=== PATIENT | female | born 1955 | race Caucasian/White ===

== ENCOUNTER → 2016-09-24 | Outpatient (CLI) | payer BC ==
[~2016-09-24] MED LIST: AMOX-355 PO; FLUO40CA PO; HYDR-3454 PO; MELO-195 PO; METO25TA2 PO; MNTL10T PO; PREDNISONE 20MG
--- OUTSIDE RECORDS SUMMARY | 2016-09-24 10:51 | XMS REPORT | Continuity of Care Document ---
Author Author [facility] Organization [facility] Address Unknown Phone Unavailable Allergies Active Description Code Type Severity Reaction Onset Reported/Identified Relationship to Patient Clinical Status Yes codeine [id number] Drug Allergy Unknown N/V, DECREASED 03/02/2014 Yes Sulfa (Sulfonamide Antibiotics) [id number] Drug Allergy Unknown HIVES 03/02/2014 Medications Problems Date Dx Coded Attending Type Code Diagnosis Diagnosed By 03/09/2014 DILIP REINA, ANNE P Ot 473.0 03/09/2014 DILIP REINA, ANNE P Ot 473.2 03/09/2014 DILIP REINA, ANNE P Ot 478.0 03/28/2015 OSWALDO REINA, ZENAIDA L Ot 610.1 03/28/2015 OSWALDO REINA, ZENAIDA L Ot V16.3 03/28/2015 OSWALDO REINA, ZENAIDA L Ot V76.11 09/12/2015 LETY ESPARZA [facility] Ot 611.71 09/12/2015 LETY ESPARZA [facility] Ot V16.3 09/12/2015 CANDELARIO OGDEN [facility] Ot 490 09/12/2015 DILIP REINA, ANNE P Ot 473.9 09/12/2015 DILIP REINA, ANNE P Ot 473.9 09/12/2015 DILIP REINA, ANNE P Ot 478.0 09/12/2015 DILIP REINA, ANNE P Ot V72.63 09/12/2015 OSWALDO REINA, ZENAIDA L Ot 610.1 09/12/2015 OSWALDO REINA, ZENAIDA L Ot V16.3 09/12/2015 OSWALDO REINA, ZENAIDA L Ot V76.11 09/18/2015 OSWALDO REINA, ZENAIDA L Ot R92.8 09/20/2015 OSWALDO REINA, ZENAIDA L Ot R92.8 09/26/2015 OSWALDO REINA, ZENAIDA L Ot R92.8 10/17/2015 OSWALDO REINA, ZENAIDA L Ot R92.8 04/27/2016 OWSALDO REINAZENAIDA Ot R92.8 OTH ABN AND INCONCLUSIVE FINDINGS ON DX Procedures Results Encounters ACCT No. Visit Date/Time Discharge Status Pt. Type Provider Facility Loc./Unit Complaint [id number] 03/14/2015 08:43:00 2014 23:59:59 CLS Outpatient ZENAIDA CHACON MD [facility] RAD [id number] 03/09/2014 07:31:00 2013 12:30:00 [id number] 03/02/2014 09:56:00 2013 23:59:59 CLS Outpatient ANNE CHERRY MD [facility] PREOP [id number] 02/14/2014 11:31:00 2013 23:59:59 CLS Outpatient ANNE CHERRY MD [facility] RAD [id number] 05/11/2013 17:26:00 2012 23:59:59 CLS Outpatient CANDELARIO OGDEN [facility] RAD [id number] 03/24/2013 07:56:00 2012 23:59:59 CLS Outpatient LETY ESPARZA [facility] RAD [id number] 04/10/2016 08:47:00 ACT Outpatient ZENAIDA CHACON MD [facility] RAD ABNORMAL MAMMO [id number] 10/11/2015 09:19:00 ACT Outpatient ZENAIDA CHACON MD [facility] LAB [id number] 10/08/2015 10:39:00 ACT Outpatient ZENAIDA CHACON MD [facility] RAD [id number] 09/12/2015 09:20:00 ACT Outpatient ZENAIDA CHACON MD [facility] RAD [id number] 09/12/2015 09:20:00 Document Registration
--- NOTE | 2016-09-25 12:12 | Diagnostic Imaging Report ---
Bilateral screening mammogram. The current study was also evaluated with a Computer Aided Detection (CAD) system. INDICATION: Screening. No current complaints stated on the questionnaire. COMPARISON: 03/14/2015. FINDINGS: The breasts are composed of heterogeneously dense parenchyma which may decrease mammographic sensitivity. There are occasional benign-appearing calcifications seen. Biopsy clips are noted in the right breast. Allowing for technique and positional differences, no suspicious change is seen. IMPRESSION: Dense breasts with no definite change. ACR BI-RADS Category 2: Benign findings. Result letter will be mailed to the patient. Note: At least 10% of breast cancer is not imaged by mammography. Dictated by: Dictated on workstation # [id number]
== END ==
LOC: RAD 10:48
PROVIDERS: ATTEND Nurse Practitioner Family
DX: Z12.31 Encounter for screening mammogram for malignant neoplasm of breast (principal)
CPT/HCPCS: 77067

== ENCOUNTER → 2016-11-26 | Outpatient (CLI) | payer BC ==
[2016-11-26 18:50] LABS: BASOPHILS % (AUTO) 1 % (0-10); EOSINOPHILS # (AUTO) 0.1 10^3/uL (0.0-0.3); EOSINOPHILS % (AUTO) 2 % (0-10); LYMPHOCYTES # (AUTO) 2.1 X 10^3 (1.0-4.0); LYMPHOCYTES % (AUTO) 35 % (12-44); MEAN CORPUSCULAR HEMOGLOBIN 32 PG (25-34); MEAN CORPUSCULAR HGB CONC 33 G/DL (32-36); MEAN CORPUSCULAR VOLUME 95 FL (80-99); MEAN PLATELET VOLUME 10.7 FL (7.4-10.4); MONOCYTES # (AUTO) 0.6 X 10^3 (0.0-1.0); MONOCYTES % (AUTO) 10 % (0-12); NEUTROPHILS # (AUTO) 3.3 X 10^3 (1.8-7.8); NEUTROPHILS % (AUTO) 54 % (42-75); PLATELET COUNT 253 10^3/uL (130-400); RED BLOOD COUNT 4.42 10^6/uL (4.35-5.85); RED CELL DISTRIBUTION WIDTH 13.1 % (10.0-14.5); WHITE BLOOD COUNT 6.1 10^3/uL (4.3-11.0)
[2016-11-26 20:50] LABS: ERYTHROCYTE SEDIMENTATION RATE 12 MM/HR (0-30)
[2016-12-01 11:20] LABS: EHRLICHIA CHAFFEENSIS G ABY 1:16 (<1:16)
[2016-12-01 11:23] LABS: IGG ROCKY MOUNTAIN SPOTTED FEV <1:16 (<1:16); TULAREMIA ANTIBODY 1:20
[2016-12-01 11:24] LABS: IGM ROCKY MOUNTAIN SPOTTED FEV <1:10 (<1:10)
[2016-12-01 11:43] LABS: LYME AB G M 0.06; LYME AB INTERP Negative (NEGATIVE)
== END ==
LOC: LAB 18:33
PROVIDERS: ATTEND Nurse Practitioner Family
DX: R53.83 Other fatigue (principal)
CPT/HCPCS: 36415; 85025; 85652; 86141; 86618; 86666; 86668; 86757

== ENCOUNTER → 2017-10-13 | Outpatient (CLI) | payer BC ==
--- NOTE | 2017-10-13 12:43 | Diagnostic Imaging Report ---
PROCEDURE: US left lower extremity venous. TECHNIQUE: Multiple real-time grayscale images were obtained over the left lower extremity in various projections. Additional duplex Doppler and color Doppler images were also obtained. INDICATION: Left leg pain and swelling. FINDINGS: There is no evidence of left lower extremity DVT. The left lower extremity deep venous system demonstrates normal compressibility with normal response to augmentation and Valsalva. IMPRESSION: No evidence of left lower extremity DVT. Dictated by: Dictated on workstation # [id number]
== END ==
LOC: RAD 11:59
PROVIDERS: ATTEND Nurse Practitioner Family
DX: M79.89 Other specified soft tissue disorders (principal)

== ENCOUNTER 2018-01-27 20:31 | Outpatient (CLI) | payer BC | END 2018-01-28 05:45 | disposition home or self-care (01) | LOC: SLEEP 20:31 | PROVIDERS: ATTEND Nurse Practitioner Family | DX: G47.33 Obstructive sleep apnea (adult) (pediatric) (principal) | CPT/HCPCS: 95811 ==

== ENCOUNTER → 2018-03-18 | Outpatient (CLI) | payer OTHER, BC ==
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
== END ==
LOC: RAD 09:40
PROVIDERS: ATTEND Nurse Practitioner Family
DX: M50.322 Other cervical disc degeneration at C5-C6 level (principal); M43.12 Spondylolisthesis, cervical region
CPT/HCPCS: 72040

== ENCOUNTER → 2018-11-22 | Outpatient (CLI) | payer BC ==
--- NOTE | 2018-11-22 11:51 | Diagnostic Imaging Report ---
Clinical indication: Patient fell and twisted foot and ankle this morning. Patient has pain and swelling involving the ankle joint and fifth metatarsal tuberosity area. Exams: 1: X-ray of the right foot, 3 views. 2: X-ray of the right ankle, 3 views. Comparison: None. Findings: There is a distracted fracture of the base of the fifth metatarsal bone with adjacent soft tissue swelling. The fracture fragment is displaced posteriorly by roughly 6 mm. There is no other fracture or dislocation seen on this exam. The ankle mortise and syndesmotic joint is unremarkable. The remainder of the forefoot and phalanges are unremarkable. Impression: 1: There is a comminuted distracted fracture involving the base of the fifth metatarsal bone with adjacent soft tissue swelling. 2: The remainder of this exam shows no other significant abnormality. Report was faxed to office of SIDDHARTH Gibson by nathan at 11:50 am. Dictated by: Dictated on workstation # [id number]
== END ==
LOC: RAD 10:24
PROVIDERS: ATTEND Nurse Practitioner Family
DX: S92.351A Displaced fracture of fifth metatarsal bone, right foot, initial encounter for closed fracture (principal); W19.XXXA Unspecified fall, initial encounter
CPT/HCPCS: 73610; 73630

== ENCOUNTER → 2021-06-03 | Outpatient (CLI) | payer BC ==
--- NOTE | 2021-06-03 12:33 | Diagnostic Imaging Report ---
Indication: Routine screening. Comparison is made with prior mammogram 09/24/2016 and 04/10/2016. 2-D and 3-D bilateral screening mammography was performed with CAD. Both breasts are heterogeneously dense, limiting the sensitivity of mammography. There are benign calcifications in both breasts. Biopsy changes in the right breast are again noted. No mass or malignant-appearing microcalcifications are identified. Axillae are unremarkable. IMPRESSION: BI-RADS Category 2 No mammographic features suspicious for malignancy are identified. ACR BI-RADS Category 2: Benign findings. Result letter will be mailed to the patient. Note: At least 10% of breast cancer is not imaged by mammography. Dictated by: Dictated on workstation # [id number]
== END ==
LOC: RAD 09:00
PROVIDERS: ATTEND Nurse Practitioner Family
DX: Z12.31 Encounter for screening mammogram for malignant neoplasm of breast (principal)
CPT/HCPCS: 77063; 77067

== ENCOUNTER → 2021-09-04 | Outpatient (CLI) | payer BC ==
--- NOTE | 2021-09-04 12:41 | Diagnostic Imaging Report ---
INDICATION: Abdominal pain. COMPARISON: None FINDINGS: 2 frontal radiographic views of the abdomen were obtained. Small bowel loops are nondistended. There is no large collection of free cranial air. No unexpected extraosseous callus occasions or radiopaque foreign bodies are seen. Osseous structures show no gross acute abnormalities. IMPRESSION: 1. Nonobstructed small bowel gas pattern. Dictated by: Dictated on workstation # [id number]
--- NOTE | 2021-09-04 13:19 | Diagnostic Imaging Report ---
Ultrasound noninvasive INDICATION: Hyperlipidemia This exam is performed in the routine fashion. Segmental pressures of both lower extremities were obtained. The ankle brachial index on the right is 1.3 and on the left 1.15 (normal 1.0 or greater). IMPRESSION: The ankle brachial indices are within normal limits. Dictated by: Dictated on workstation # [id number]
== END ==
LOC: RAD 10:30
PROVIDERS: ATTEND Nurse Practitioner Family
DX: R10.9 Unspecified abdominal pain (principal); M79.606 Pain in leg, unspecified; R68.0 Hypothermia, not associated with low environmental temperature; E78.5 Hyperlipidemia, unspecified; R14.0 Abdominal distension (gaseous)
CPT/HCPCS: 74018; 93922

== ENCOUNTER → 2021-11-06 | Outpatient (CLI) | payer BC ==
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
== END ==
LOC: RAD 08:45
PROVIDERS: ATTEND Nurse Practitioner Family
DX: R51.9 Headache, unspecified (principal); M79.10 Myalgia, unspecified site; Z87.820 Personal history of traumatic brain injury
CPT/HCPCS: 70551

== ENCOUNTER → 2021-11-20 | Outpatient (CLI) | payer BC | LOC: CARD 09:30 | PROVIDERS: ATTEND Nurse Practitioner Family | DX: I51.7 Cardiomegaly (principal); I35.1 Nonrheumatic aortic (valve) insufficiency; I72.9 Aneurysm of unspecified site; R00.9 Unspecified abnormalities of heart beat | CPT/HCPCS: 93306 ==

== ENCOUNTER → 2022-02-10 | Outpatient (CLI) | payer BC ==
--- NOTE | 2022-02-10 15:38 | Diagnostic Imaging Report ---
Indication: Left medial knee pain. Time of Exam: 2:35 PM 3 views of the left knee were obtained. Alignment is normal. This very mild medial compartmental joint space narrowing. The articular surfaces are smooth. No fracture or dislocation is seen. There is suprapatellar fullness consistent with a moderate-sized knee joint effusion. IMPRESSION: Joint effusion and mild medial compartmental degenerative change. Dictated by: Dictated on workstation # [id number]
== END ==
LOC: RAD 14:12
PROVIDERS: ATTEND Nurse Practitioner Family
DX: M17.12 Unilateral primary osteoarthritis, left knee (principal)
CPT/HCPCS: 73562

== ENCOUNTER → 2022-02-13 | Outpatient (CLI) | payer BC ==
--- NOTE | 2022-02-13 17:31 | Diagnostic Imaging Report ---
EXAMINATION: Magnetic resonance imaging of the left knee without intravenous contrast DATE: February 13, 2022. COMPARISON: Left knee radiographs February 10, 2022. INDICATION: 66-year-old female, left knee pain for one month. TECHNIQUE: Multiplanar, multisequence non contrast enhanced MR imaging was accomplished. FINDINGS: MENISCI: The medial meniscus is intact. The lateral meniscus is intact. LIGAMENTS AND TENDONS: The anterior and posterior cruciate ligaments are intact. The medial collateral ligament is intact. The iliotibial band, mid third lateral capsular ligament, fibular collateral ligament, biceps femoris tendon and conjoined tendon are intact. The quadriceps tendon and patella ligament are intact. JOINT: There is mild cartilage thinning of the posterior aspect of the medial femoral condyle with minimal underlying degenerative related edema. The additional articular cartilage appears intact. There is no sizable knee joint effusion. There is no identified intra-articular body or prominent synovitis. BONE: There is no acute fracture, bone contusion or evidence of osteonecrosis. 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 There is nonspecific subcutaneous edema which is most prominent anteriorly. IMPRESSION: 1. Intact menisci and cruciate ligaments. Additional ligaments and tendons are intact. 2. Mild medial compartment osteoarthritis. No knee joint effusion. 3. No acute fracture, bone contusion or evidence of osteonecrosis. 4. Cornejo's cyst. Dictated by: Dictated on workstation # [id number]
== END ==
LOC: RAD 14:45
PROVIDERS: ATTEND Nurse Practitioner Family
DX: M17.12 Unilateral primary osteoarthritis, left knee (principal); M71.22 Synovial cyst of popliteal space [Baker], left knee
CPT/HCPCS: 73721

== ENCOUNTER → 2022-03-30 | Outpatient (CLI) | payer BC ==
--- NOTE | 2022-03-30 16:14 | Diagnostic Imaging Report ---
PROCEDURE: US left lower extremity venous. TECHNIQUE: Multiple real-time grayscale images were obtained over the left lower extremity in various projections. Additional duplex Doppler and color Doppler images were also obtained. INDICATION: Calf swelling. FINDINGS: The veins of the left leg have good color filling and compressibility. There is phasic flow and normal response to augmentation. IMPRESSION: Negative venous Doppler of the left leg. Dictated by: Dictated on workstation # [id number]
== END ==
LOC: RAD 15:30
PROVIDERS: ATTEND Family Medicine
DX: M79.89 Other specified soft tissue disorders (principal)

== ENCOUNTER 2022-12-15 09:30 | Emergency (ER) | payer BC ==
[~2022-12-15] VITALS: Ht 165 cm; Wt 82.0 kg
--- NOTE | 2022-12-15 10:05 | ED Cardiac General ---
History of Present Illness General Chief Complaint: Chest Pain Stated Complaint: CHEST PAINS Nursing Triage Note: PT AMB TO RM 7 PT CO OF CHEST PAIN STARTED THIS AM 8/10 STARTED APPROX 1 HOUR AGO, PT CO OF SOA, AND NAUSEA. Source: patient Exam Limitations: no limitations History of Present Illness Date Seen by Provider: December 15, 2022 Time Seen by Provider: 09:40 Initial Comments Patient is a 67-year-old who presents to the emergency room with a chief complaint of left scapular pain that started this morning around 8 AM. She states that it hurts to take a deep breath in her back. The pain does not radiate. She feels a little short of breath. No nausea, sweating no anterior c hest wall pain. She has never had a pain like this before. She cannot recall any activities that might have caused this. No recent heavy lifting, pushing or pulling. She denies recent illness, productive cough, congestion. No problems with bowel or bladder. She states that her grandmother from a heart attack because her heart "exploded" and her only symptom was back pain. Patient does take medication for high blood pressure. She is not a diabetic, not a smoker. Timing/Duration: 1-3 hours Severity: moderate Location: other (back, left scapula) Activities at Onset: activity NTG SL DIET TECHNICIAN REGISTERED: No ASA po DIET TECHNICIAN REGISTERED: No Associated Systoms: Shortness of Air (Hurts to take a deep breath) Allergies and Home Medications Allergies Coded Allergies: Sulfa (Sulfonamide Antibiotics) (Unverified Allergy, Unknown, HIVES, ) codeine (Unverified Allergy, Unknown, N/V, DECREASED RENAL FUNCTION, 03/02/14) Patient Home Medication List Home Medication List Reviewed: Yes Amoxicillin/Clavulanate K (Augmentin 500-125 Tablet) 1 Each Tablet, 1 EACH PO BID Prescribed by: SALONI CRUM on 03/09/14 1143 Fluoxetine Hcl (Fluoxetine Hcl) 40 Mg Capsule, 40 MG PO DAILY, (Reported) Entered as Reported by: JACKELIN HENDERSON on 03/02/14 1130 Hydrocodone Bit/Acetaminophen (Vicodin 5-300 Mg Tablet) 1 Each Tablet, 1-2 TAB PO Q4H PRN for PAIN Prescribed by: SALONI CRUM on 03/09/14 1143 Metoprolol Tartrate (Metoprolol Tartrate 25 Mg) 25 Mg Tablet, 25 MG PO DAILY, (Reported) Entered as Reported by: JACKELIN HENDERSON on 03/02/14 1130 Montelukast Sodium (Singulair 10 Mg) 10 Mg Tablet, 10 MG PO DAILY, (Reported) Entered as Reported by: JACKELIN HENDERSON on 03/02/14 1130 [Prednisone 20MG] Prescribed by: SALONI CRUM on 03/09/14 1143 Review of Systems Review of Systems Constitutional: see HPI EENTM: No Symptoms Reported Respiratory: Shortness of Air Cardiovascular: No Symptoms Reported Gastrointestinal: No Symptoms Reported Genitourinary: No Symptoms Reported Musculoskeletal: back pain (Left scapular) Skin: no symptoms reported Psychiatric/Neurological: No Symptoms Reported All Other Systems Reviewed Negative Unless Noted: Yes Past Agucygf-Tegotk-Unxmre Hx Patient Social History Tobacco Use?: No Substance use?: No Alcohol Use?: No Pt feels they are or have been: No Immunizations Up To Date Influenza Vaccine Up-to-Date: No; Not Current First/Initial COVID19 Vaccinat: YES Second COVID19 Vaccination Shalom: YES Past Medical History Surgery/Hospitalization HX: FIBROMYALGIA, HTN, ELEVATED CHOLESTEROL. FOOT SURG, HYST Physical Exam Vital Signs Vital Signs - First Documented 12/15/22 09:30 Pulse 58 Resp 16 B/P (MAP) 152/86 (108) Pulse Ox 95 Capillary Refill : Less Than 3 Seconds Height, Weight, BMI Height: 5'5.00" Weight: 162lbs. oz. 73.045476rg; 30.00 BMI Method: General Appearance: No Apparent Distress, WD/WN HEENT: PERRL/EOMI Neck: Normal Inspection Respiratory: Lungs Clear, Normal Breath Sounds, No Accessory Muscle Use, No Respiratory Distress Cardiovascular: Regular Rate, Rhythm, Normal Peripheral Pulses Gastrointestinal: Non Tender, Soft Extremity: Normal Capillary Refill, Normal Inspection, Normal Range of Motion, Non Tender, Other (Patient has point tenderness just medial to the left scapula slightly inferior. I am unable to completely reproduce the pain but she states that is the area in which she is uncomfortable. No overlying rashes. Good range of motion of the left shoulder.) Neurologic/Psychiatric: Alert, Oriented x3, No Motor/Sensory Deficits, Normal Mood/Affect Skin: Normal Color, Warm/Dry Progress/Results/Core Measures Results/Orders Lab Results Laboratory Tests Test 12/15/22 09:36 Range/Units White Blood Count 5.9 4.3-11.0 10^3/uL Red Blood Count 4.24 3.80-5.11 10^6/uL Hemoglobin 13.3 11.5-16.0 g/dL Hematocrit 40 35-52 % Mean Corpuscular Volume 93 80-99 fL Mean Corpuscular Hemoglobin 31 25-34 pg Mean Corpuscular Hemoglobin Concent 34 32-36 g/dL Red Cell Distribution Width 13.5 10.0-14.5 % Platelet Count 266 130-400 10^3/uL Mean Platelet Volume 10.5 9.0-12.2 fL Immature Granulocyte % (Auto) 0 % Neutrophils (%) (Auto) 59 42-75 % Lymphocytes (%) (Auto) 29 12-44 % Monocytes (%) (Auto) 9 0-12 % Eosinophils (%) (Auto) 3 0-10 % Basophils (%) (Auto) 1 0-10 % Neutrophils # (Auto) 3.5 1.8-7.8 10^3/uL Lymphocytes # (Auto) 1.7 1.0-4.0 10^3/uL Monocytes # (Auto) 0.5 0.0-1.0 10^3/uL Eosinophils # (Auto) 0.2 0.0-0.3 10^3/uL Basophils # (Auto) 0.0 0.0-0.1 10^3/uL Immature Granulocyte # (Auto) 0.0 0.0-0.1 10^3/uL Prothrombin Time 13.1 12.2-14.7 SEC INR Comment 0.9 0.8-1.4 Activated Partial Thromboplast Time 30 24-35 SEC Sodium Level 142 135-145 MMOL/L Potassium Level 3.8 3.6-5.0 MMOL/L Chloride Level 106 98-107 MMOL/L Carbon Dioxide Level 25 21-32 MMOL/L Anion Gap 11 5-14 MMOL/L Blood Urea Nitrogen 15 7-18 MG/DL Creatinine 1.02 0.60-1.30 MG/DL Estimat Glomerular Filtration Rate 61 BUN/Creatinine Ratio 15 Glucose Level 90 70-105 MG/DL Calcium Level 9.3 8.5-10.1 MG/DL Corrected Calcium 9.4 8.5-10.1 MG/DL Magnesium Level 2.2 1.6-2.4 MG/DL Total Bilirubin 0.5 0.1-1.0 MG/DL Aspartate Amino Transf (AST/SGOT) 19 5-34 U/L Alanine Aminotransferase (ALT/SGPT) 27 0-55 U/L Alkaline Phosphatase 83 40-136 U/L Troponin I < 0.028 <0.028 NG/ML Total Protein 6.5 6.4-8.2 GM/DL Albumin 3.9 3.2-4.5 GM/DL My Orders Orders - RIGOBERTO SÁNCHEZ MD Ekg Tracing (12/15/22 09:34) Cbc With Automated Diff (12/15/22 10:01) Magnesium (12/15/22 10:01) Chest 1 View, Ap/Pa Only (12/15/22 10:01) Comprehensive Metabolic Panel (12/15/22 10:01) Protime With Inr (12/15/22 10:01) Partial Thromboplastin Time (12/15/22 10:01) O2 (12/15/22 10:01) Monitor-Rhythm Ecg Trace Only (12/15/22 10:01) Ed Iv/Invasive Line Start (12/15/22 10:01) Troponin I Yo (12/15/22 10:01) Orphenadrine Inj (Ed Only) (Norflex Inje (12/15/22 10:15) Medications Given in ED Current Medications Medications Dose Ordered Sig/Chloe Route Start Time Stop Time Status Last Admin Dose Admin Orphenadrine Citrate 60 mg ONCE ONCE IV 12/15/22 10:15 12/15/22 10:16 DC 12/15/22 10:25 60 MG Vital Signs/I&O 12/15/22 09:30 Pulse 58 Resp 16 B/P (MAP) 152/86 (108) Pulse Ox 95 Blood Pressure Mean: 108 Progress Progress Note : Time: 11:25 Progress Note Patient seen and examined by me. Evaluation today includes physical exam, EKG, single view chest x-ray, CBC, Chem-12, coags, troponin. Pertinent physical exam findings, well-developed well-nourished female in no acute distress. Vital sig ns are stable. Lungs are clear, heart is regular distal pulses are intact. Skin is pink warm and dry. Patient has tenderness to palpation of the medial left scapula towards the inferior margin. No overlying rashes. Good range of motion of the left shoulder. No anterior chest wall pain that is reproducible. Differential diagnosis based on history and physical exam, atypical presentation of ACS, musculoskeletal pain, pleurisy. Labs and imaging independently reviewed by me. All of her labs are completely within normal limits to include CBC, Chem-12, coags and undetectable troponin. EKG is sinus bradycardia in the 50s without ectopy or ST segment change. Chest x-ray is also unremarkable. Patient was treated with 60 mg of Norflex IV. She states the discomfort is not completely gone but it is much improved. Low clinical concern for ACS. This does not appear to be pleuritic pain as the focus is mostly in her left shoulder blade. No associated cough or fever. Likely muscle spasm. Patient is advised to treat symptomatically with ibuprofen, lidocaine patches or Biofreeze. She is comfortable with the plan of care. Discharge instructions and return precautions provided in both verbal and written form. All questions are sought and answered. Initial ECG Impression Date: December 15, 2022 Initial ECG Impression Time: 09:41 Initial ECG Rate: 54 Initial ECG Rhythm: Normal Sinus, S.Xavi Initial ECG Intervals: Normal Initial ECG Impression: Normal Diagnostic Imaging Diagonstic Imaging: Xray Plain Films/CT/US/NM/MRI: chest Comments [facility] [place] [facility] [place], [place] NAME: HARLEY AVALOS MED REC#: [id number] PT STATUS: REG ER : 1955 PHYSICIAN: RIGOBERTO SÁNCHEZ MD ADMIT DATE: 12/15/22/ER Draft Date of Exam:12/15/22 CHEST 1 VIEW, AP/PA ONLY INDICATION: Chest pain. TECHNIQUE/COMPARISON: A frontal chest was obtained at 9:57 AM and compared to 05/11/2013. FINDINGS: The heart and mediastinal silhouette are normal in appearance. The lungs are clear. There is no pneumothorax or pleural fluid. IMPRESSION: Negative chest. Dictated on workstation # [id number] Dict: 12/15/22 1036 Trans: 12/15/22 1040 [id number] Interpreted by: JULIET STEPHENS MD Electronically signed by: Departure Impression Primary Impression: Pain of left scapula Disposition: 01 HOME, SELF-CARE Condition: Improved Departure-Patient Inst. Decision time for Depature: 11:27 Referrals: JOSE SARGENT MD (PCP/Family) Primary Care Physician Patient Instructions: Acute Pain, Adult Add. Discharge Instructions: Continue your daily medications as prescribed. You can use bybl-qov-ohmwuvk Biofreeze or lidocaine patches which you can find at your local pharmacy over the area to help improve discomfort. Please follow packaging instructions. You can take extra strength Tylenol or ibuprofen for pain as well. Please follow packaging instructions. If you develop worsening pain or have any new concerning or emergent complaints please return to the emergency room for reevaluation. Please follow-up with Dr. Sargent as well. Copy Copies To 1: JOSE SARGENT MD, KATHRYN M MD December 15, 2022 10:05
[2022-12-15] MEDS ORDERED: ORPHENADRINE 60 MG/2 ML (NORFLEX) AMP (ED ONLY) IV ONE (10:15)
[2022-12-15 10:17] LABS: BASOPHILS % (AUTO) 1 % (0-10); EOSINOPHILS # (AUTO) 0.2 10^3/uL (0.0-0.3); EOSINOPHILS % (AUTO) 3 % (0-10); HEMATOCRIT 40 % (35-52); HEMOGLOBIN 13.3 g/dL (11.5-16.0); LYMPHOCYTES # (AUTO) 1.7 10^3/uL (1.0-4.0); LYMPHOCYTES % (AUTO) 29 % (12-44); MEAN CORPUSCULAR HEMOGLOBIN 31 pg (25-34); MEAN CORPUSCULAR HGB CONC 34 g/dL (32-36); MEAN CORPUSCULAR VOLUME 93 fL (80-99); MEAN PLATELET VOLUME 10.5 fL (9.0-12.2); MONOCYTES # (AUTO) 0.5 10^3/uL (0.0-1.0); MONOCYTES % (AUTO) 9 % (0-12); NEUTROPHILS # (AUTO) 3.5 10^3/uL (1.8-7.8); NEUTROPHILS % (AUTO) 59 % (42-75); PLATELET COUNT 266 10^3/uL (130-400); WHITE BLOOD COUNT 5.9 10^3/uL (4.3-11.0)
[2022-12-15 10:18] LABS: ALBUMIN 3.9 GM/DL (3.2-4.5)
[2022-12-15 10:19] LABS: POTASSIUM 3.8 MMOL/L (3.6-5.0)
[2022-12-15 10:20] LABS: CALCIUM 9.3 MG/DL (8.5-10.1)
[2022-12-15 10:21] LABS: TOTAL PROTEIN 6.5 GM/DL (6.4-8.2)
[2022-12-15 10:23] LABS: BILIRUBIN,TOTAL 0.5 MG/DL (0.1-1.0)
[2022-12-15 10:25] LABS: CREATININE SERUM 1.02 MG/DL (0.60-1.30)
[2022-12-15 10:28] LABS: MAGNESIUM 2.2 MG/DL (1.6-2.4)
[2022-12-15 10:29] LABS: INR 0.9 (0.8-1.4); PROTHROMBIN TIME PATIENT 13.1 SEC (12.2-14.7)
--- NOTE | 2022-12-15 10:40 | Diagnostic Imaging Report ---
INDICATION: Chest pain. TECHNIQUE/COMPARISON: A frontal chest was obtained at 9:57 AM and compared to 05/11/2013. FINDINGS: The heart and mediastinal silhouette are normal in appearance. The lungs are clear. There is no pneumothorax or pleural fluid. IMPRESSION: Negative chest. Dictated by: Dictated on workstation # [id number]
[2022-12-15 11:40] VITALS: BP 174/96
== END 2022-12-15 11:42 | disposition home or self-care (01) ==
LOC: EDUNIT# 09:30 → ER 09:31
DX: M25.512 Pain in left shoulder (principal); R00.1 Bradycardia, unspecified; R07.9 Chest pain, unspecified
CPT/HCPCS: 36415; 71045; 80053; 83735; 84484; 85025; 85610; 85730; 93005; 93041

== ENCOUNTER → 2023-04-05 | Outpatient (CLI) | payer BC ==
--- NOTE | 2023-04-05 17:24 | Diagnostic Imaging Report ---
EXAMINATION: Sacroiliac joint radiographs, 3 views. COMPARISON: None. HISTORY: 67-year-old female, low back pain. FINDINGS: There is transitional lumbosacral anatomy. L5 is labeled as having a pseudoarticulation with S1. The sacroiliac joints are unremarkable in appearance. There is no identified acute fracture. IMPRESSION: 1. Unremarkable evaluation of the sacroiliac joints. 2. Transitional lumbosacral anatomy. L5 is labeled as having a pseudoarticulation with S1 on the left. Dictated on workstation # [id number]
--- NOTE | 2023-04-05 20:10 | Diagnostic Imaging Report ---
INDICATION: LUMBAR RADICULOPATHY TECHNIQUE: AP, Lateral and Spot imaging of the lumbar spine CORRELATION STUDY: None FINDINGS: The lumbar spinal curvature and alignment are within normal limits. Vertebral body heights are maintained. Novx-ec-rlckleku asymmetric disc space narrowing at L4-L5 and L5-S1 level. Hypertrophic facet arthropathy at L5-S1. No fracture or malalignment. Vascular calcification of the abdominal aorta. Mild to moderately advanced degenerative changes of both hips. Probable ingested tablet left upper quadrant. Coarse calcification over the right renal silhouette. IMPRESSION: No radiographic evidence for acute bony abnormality of the lumbar spine. Asymmetric degenerative disc disease and hypertrophic facet arthropathy lower lumbar spine. Dictated by: Dictated on workstation # [id number]
== END ==
LOC: RAD 13:31
PROVIDERS: ATTEND Nurse Practitioner Family
DX: M51.16 Intervertebral disc disorders with radiculopathy, lumbar region (principal); M47.26 Other spondylosis with radiculopathy, lumbar region
CPT/HCPCS: 72100; 72202

== ENCOUNTER → 2023-04-29 | Outpatient (CLI) | payer BC ==
--- NOTE | 2023-04-29 21:10 | Diagnostic Imaging Report ---
CLINICAL INDICATION: Patient with no known injury. Patient with chronic low back pain. EXAM: MRI of the lumbar spine performed without IV contrast. Sequences include sagittal T2, sagittal T1, sagittal T2 fat-sat, and axial T2. COMPARISON: X-ray of the lumbar spine dated 04/05/2023. FINDINGS: There is no acute lumbar spine fracture or dislocation. There is minimal Modic type II degenerative signal changes involving the anterior aspect of the L3-L5 vertebra. There are small degenerative spurs involving the lower lumbar spine anteriorly. The visualized portions of the distal thoracic spinal cord, conus medullaris, and cauda equina nerve roots are unremarkable. The conus medullaris tip is seen at the lower L1 vertebral body level. There is no significant paraspinal soft tissue abnormality. L1-L2: Unremarkable. L2-L3: There is mild bilateral facet arthropathy. There is no significant central spinal canal or neural foramen narrowing. L3-L4: There is mild bilateral facet arthropathy. There is no significant disk bulge. There is no significant central spinal canal or neural foramen narrowing. L4-L5: There is mild diffuse disk bulge. There is mild loss of disk space height. There is moderate bilateral facet arthropathy/hypertrophy. There is nsbdikez-at-lbxsdr central canal stenosis. There is ligamentum flavum buckling. There is mild right neural foramen narrowing and qnvx-mh-wakuhrtt left neural foramen narrowing. L5-S1: There is a small intervertebral disk. There is mild bilateral facet arthropathy with hypertrophic changes on the right. There is no significant central spinal canal or neural foramen narrowing. IMPRESSION: 1: There is an L4-L5 diffuse disk bulge and bilateral facet arthropathy and ligamentum flavum buckling. There is pyavetsx-fx-oavlyt central canal stenosis, mild right neural foramen narrowing and zlsr-wh-oatedekz left neural foramen narrowing. 2: The remainder of the lumbar spine shows mild degenerative changes. Dictated by: Dictated on workstation # [id number]
== END ==
LOC: RAD 09:55
PROVIDERS: ATTEND Nurse Practitioner Family
DX: M47.26 Other spondylosis with radiculopathy, lumbar region (principal); M48.061 Spinal stenosis, lumbar region without neurogenic claudication
CPT/HCPCS: 72148

== ENCOUNTER 2023-07-12 10:15 | Emergency (ER) | payer BC ==
[~2023-07-12] VITALS: Ht 165.1 cm; Wt 87.0 kg
--- NOTE | 2023-07-12 11:24 | ED Fall/Injury ---
General Chief Complaint: Trauma-Non Activation Stated Complaint: FALL | MID/LOWER BACK INJ Nursing Triage Note: pt reports she was walking up a step and lost balance, falling backward et landing on cement. denies head injury. c/o severe middle back pain. swelling et tenderness palpated over middle back. Source: patient Exam Limitations: no limitations History of Present Illness Date Seen by Provider: Jul 12, 2023 Time Seen by Provider: 11:13 Initial Comments This 68-year-old woman presents to the emergency room via private vehicle after losing her balance walking up a step and falling over backwards. She struck her back on the concrete. She denies any head or neck injury. She complains of severe pain in the left groin and lower back. She denies any prodrome such as chest pain, lightheadedness, dizziness, shortness of breath, etc. She did feel more sleepy at breakfast than usual. She took her Lyrica this morning but has not taken any other pain medication. She is tearful and avoids eye contact. Allergies and Home Medications Allergies Coded Allergies: Sulfa (Sulfonamide Antibiotics) (Unverified Allergy, Unknown, HIVES, 03/02/14) codeine (Unverified Allergy, Unknown, N/V, DECREASED RENAL FUNCTION, 03/02/14) Patient Home Medication List Home Medication List Reviewed: Yes Amoxicillin/Clavulanate K (Augmentin 500-125 Tablet) 1 Each Tablet, 1 EACH PO BID Prescribed by: SALONI CRUM on 03/09/14 1143 Fluoxetine Hcl (Fluoxetine Hcl) 40 Mg Capsule, 40 MG PO DAILY, (Reported) Entered as Reported by: JACKELIN HENDERSON on 03/02/14 1130 Hydrocodone Bit/Acetaminophen (Vicodin 5-300 Mg Tablet) 1 Each Tablet, 1-2 TAB PO Q4H PRN for PAIN Prescribed by: SALONI CRUM on 03/09/14 1143 Hydrocodone/Acetaminophen (Hydrocodone-Acetamin 5-325 mg) 5 Mg-325 Mg Tablet, 1 TAB PO Q4H PRN for PAIN-MODERATE TO SEVERE Prescribed by: LEONCIO MCCARTHY on 07/12/23 1454 Metoprolol Tartrate (Metoprolol Tartrate 25 Mg) 25 Mg Tablet, 25 MG PO DAILY, (Reported) Entered as Reported by: JACKELIN HENDERSON on 03/02/14 1130 Montelukast Sodium (Singulair 10 Mg) 10 Mg Tablet, 10 MG PO DAILY, (Reported) Entered as Reported by: JACKELIN HENDERSON on 03/02/14 1130 [Prednisone 20MG] Prescribed by: SALONI CRUM on 03/09/14 1143 Review of Systems Review of Systems Constitutional: see HPI Eyes: No Symptoms Reported Ears, Nose, Mouth, Throat: no symptoms reported Respiratory: no symptoms reported Cardiovascular: no symptoms reported Gastrointestinal: no symptoms reported Genitourinary: no symptoms reported Musculoskeletal: see HPI Skin: no symptoms reported Psychiatric/Neurological: No Symptoms Reported Past Mlxjxtp-Ccbtkd-Zgzpcw Hx Patient Social History Tobacco Use?: No Use of E-Cig and/or Vaping dev: No Substance use?: No Alcohol Use?: No Immunizations Up To Date First/Initial COVID19 Vaccinat: YES Second COVID19 Vaccination Shalom: YES Past Medical History Surgery/Hospitalization HX: FIBROMYALGIA, HTN, ELEVATED CHOLESTEROL. FOOT SURG, HYST Surgeries: No Respiratory: No Cardiac: Yes High Cholesterol, Hypertension Neurological: No : No Genitourinary: No Gastrointestinal: No Musculoskeletal: Yes (Lumbar disc bulge) Fibromyalgia, Chronic Back Pain HEENT: No Cancer: No Psychosocial: No Integumentary: No Physical Exam Vital Signs Vital Signs - First Documented 07/12/23 10:45 Temp 36.6 Pulse 64 Resp 16 B/P (MAP) 110/69 (83) Pulse Ox 95 O2 Delivery Room Air Capillary Refill : Less Than 3 Seconds Height, Weight, BMI Height: 5'5.00" Weight: 162lbs. oz. 73.548639xm; 31.00 BMI Method: General Appearance: WD/WN, moderate distress HEENT: PERRL/EOMI, normal ENT inspection, other (Oropharynx dry) Neck: non-tender, normal inspection Cardiovascular: regular rate, rhythm, no edema, no murmur Respiratory: lungs clear, normal breath sounds, no respiratory distress Gastrointestinal: non tender, soft Extremities: normal inspection, no pedal edema, other (Mild tenderness in the left groin. No significant pain with rotation of the left hip. 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, no motor/sensory deficits, alert, normal mood/affect, oriented x 3, other (Moves all 4 extremities equally) Skin: normal color, warm/dry [place] Coma Score Best Eye Response: (4) Open Spontaneously Best Verbal Response: (5) Oriented Best Motor Response: (6) Obeys Commands [place] Total: 15 Progress/Results/Core Measures Results/Orders Lab Results Laboratory Tests Test 07/12/23 11:13 Range/Units White Blood Count 8.2 4.3-11.0 10^3/uL Red Blood Count 4.18 3.80-5.11 10^6/uL Hemoglobin 13.4 11.5-16.0 g/dL Hematocrit 40 35-52 % Mean Corpuscular Volume 96 80-99 fL Mean Corpuscular Hemoglobin 32 25-34 pg Mean Corpuscular Hemoglobin Concent 33 32-36 g/dL Red Cell Distribution Width 13.5 10.0-14.5 % Platelet Count 299 130-400 10^3/uL Mean Platelet Volume 10.3 9.0-12.2 fL Immature Granulocyte % (Auto) 3 % Neutrophils (%) (Auto) 74 42-75 % Lymphocytes (%) (Auto) 16 12-44 % Monocytes (%) (Auto) 5 0-12 % Eosinophils (%) (Auto) 2 0-10 % Basophils (%) (Auto) 1 0-10 % Neutrophils # (Auto) 6.1 1.8-7.8 10^3/uL Lymphocytes # (Auto) 1.3 1.0-4.0 10^3/uL Monocytes # (Auto) 0.4 0.0-1.0 10^3/uL Eosinophils # (Auto) 0.1 0.0-0.3 10^3/uL Basophils # (Auto) 0.1 0.0-0.1 10^3/uL Immature Granulocyte # (Auto) 0.3 H 0.0-0.1 10^3/uL Sodium Level 140 135-145 MMOL/L Potassium Level 3.4 L 3.6-5.0 MMOL/L Chloride Level 101 98-107 MMOL/L Carbon Dioxide Level 30 21-32 MMOL/L Anion Gap 9 5-14 MMOL/L Blood Urea Nitrogen 13 7-18 MG/DL Creatinine 0.91 0.60-1.30 MG/DL Estimat Glomerular Filtration Rate 70 BUN/Creatinine Ratio 14 Glucose Level 107 H 70-105 MG/DL Calcium Level 9.4 8.5-10.1 MG/DL Magnesium Level 2.2 1.6-2.4 MG/DL My Orders Orders - LEONCIO BENOIT MD Fentanyl Injection (Fentanyl Injection (07/12/23 11:30) Ed Iv/Invasive Line Start (07/12/23 11:19) Ct Thoracic/Lumbar Spine Wo (07/12/23 11:19) Ct Pelvis Wo (07/12/23 11:19) Basic Metabolic Panel (07/12/23 11:21) Cbc And Automated Diff (07/12/23 11:21) Magnesium (07/12/23 11:21) Ekg Tracing (07/12/23 11:21) Fentanyl Injection (Fentanyl Injection (07/12/23 13:45) Hydrocodone/Apap 5/325 Tablet (Hydrocod (07/12/23 14:45) Ns Iv 1000 Ml (Ns Iv 1000 Ml) (07/12/23 15:07) Ns Iv 1000 Ml (Ns Iv 1000 Ml) (07/12/23 15:15) Orthostatic Vital Signs (Adult (07/12/23 15:14) Medications Given in ED Current Medications Medications Dose Ordered Sig/Chloe Route Start Time Stop Time Status Last Admin Dose Admin Acetaminophen/ Hydrocodone Bitart 1 ea ONCE ONCE PO 07/12/23 14:45 07/12/23 14:46 DC 07/12/23 14:58 1 EA Fentanyl Citrate 50 mcg ONCE ONCE IVP 07/12/23 11:30 07/12/23 11:31 DC 07/12/23 11:26 50 MCG Fentanyl Citrate 50 mcg ONCE ONCE IVP 07/12/23 13:45 07/12/23 13:46 DC 07/12/23 13:41 50 MCG Vital Signs/I&O 07/12/23 07/12/23 07/12/23 10:45 15:45 15:55 Temp 36.6 Pulse 64 66 76 66 76 Resp 16 16 B/P (MAP) 110/69 (83) 177/82 (113) 169/82 152/71 (98) 119/72 (88) Pulse Ox 95 95 O2 Delivery Room Air Room Air Blood Pressure Mean: 83 Progress Progress Note : Progress Note Patient was interviewed and examined. Labs and EKG were obtained to evaluate for possible causes of her fall. EKG was unremarkable without evidence of ischemia or arrhythmia as noted in my interpretation below. Labs were reviewed and interpreted by me. CBC and BMP were unremarkable. Patient did not provide a urine specimen for us. Pain was treated with fentanyl x 2 and hydrocodone prior to discharge. Injuries were evaluated with CT scan of the pelvis, thoracic spine, and lumbar spine. Multiple injuries were found including a inferior ramus fracture and compression fractures of the spine. Subacute fractures of the ribs were identified as well. Radiologist reports were reviewed. Patient states that her rib fractures are from a fall 3 weeks ago. Patient was able to get up and use her walker with pain control. She was noted to have a marginal blood pressure prior to discharge. This prompted treatment with a liter of normal saline. This resuscitated her blood pressure and she was discharged in stable condition. See discharge instructions for further discussion. Initial ECG Impression Date: Jul 12, 2023 Initial ECG Impression Time: 12:10 Initial ECG Rate: 59 Initial ECG Rhythm: Normal Sinus Initial ECG Intervals: Normal Initial ECG Impression: Normal Comment Normal sinus rhythm with no ST elevation or depression. No abnormal intervals or axis deviation. Diagnostic Imaging Diagonstic Imaging: CT Plain Films/CT/US/NM/MRI: pelvis Comments NAME: HARLEY AVALOS MED REC#: [id number] PT STATUS: REG ER : 1955 PHYSICIAN: LEONCIO BENOIT MD ADMIT DATE: 07/12/23/ER Signed Date of Exam:07/12/23 CT PELVIS WO PROCEDURE: CT pelvis without contrast. TECHNIQUE: Multiple contiguous axial images were obtained through the pelvis without the use of intravenous contrast. Sagittal and coronal reformations were performed. Auto Exposure Controls were utilized during the CT exam to meet ALARA standards for radiation dose reduction. INDICATION: Pelvic trauma. COMPARISON: CT lumbar spine performed concurrently. FINDINGS: There is an acute nondisplaced fracture in the central aspect of the left inferior pubic ramus. The left superior pubic ramus appears intact. No fracture is seen within the pubic body on either side. No fracture within the sacral ala. The symphysis pubis and SI joints are normal in alignment. Degenerative arthritis is present in both hips and moderate in severity. No features of avascular necrosis in the femoral head. Urinary bladder is normally filled without rupture. Hysterectomy. No concerning adnexal mass. No free pelvic fluid. IMPRESSION: 1. Acute nondisplaced fracture of the left inferior pubic ramus. 2. No additional acute fracture within the pelvis or proximal femurs. 3. Moderate osteoarthritis of both hips. Dictated by: Dictated on workstation # [id number] Dict: 07/12/23 1153 Trans: 07/12/23 1301 [id number] Interpreted by: GENO CHOUDHARY MD Electronically signed by: GENO CHOUDHARY MD 07/12/23 1301 Diagonstic Imaging: CT Plain Films/CT/US/NM/MRI: other (Thoracolumbar spine) Comments NAME: HARLEY AVALOS MED REC#: [id number] PT STATUS: REG ER : 1955 PHYSICIAN: LEONCIO BENOIT MD ADMIT DATE: 07/12/23/ER Draft Date of Exam:07/12/23 CT THORACIC/LUMBAR SPINE WO CLINICAL INDICATION: Patient is status post fall, lower back pain. EXAM: Axial CT scan of the thoracic and lumbar spine performed without IV contrast. Sagittal and coronal reformations were performed. Bone and soft tissue windows were created. Auto Exposure Controls were utilized during the CT exam to meet ALARA standards for radiation dose reduction. COMPARISON: MRI of the lumbar spine without contrast dated 04/29/2023. X-ray of the cervical spine dated 03/18/2018. FINDINGS: When counting from the C2 vertebra, there is a transitional L6 vertebra with small L5-L6 intervertebral disc. This may change lumbar nomenclature on the previous images. There is interval development of a mild compression deformity with appearance of endplate irregularity involving the anterior inferior aspect of the L1 vertebra. There is also interval development of a mild compression deformity involving the upper endplate of the T11 and T12 vertebrae. There is a chronic appearing compression deformity involving the upper endplate of the T3 vertebra. There is cortical irregularity and callus formation involving the medial aspects of the right T8, T9, and T10 ribs near the uncovertebral junction region, which may represent subacute fractures. There is no other concern for thoracic or lumbar spine fracture. There is mild atelectasis involving the posterior aspects of both lungs. IMPRESSION: 1: When counting from the C2 vertebra, there are six lumbar-type vertebrae. 2: There is an acute mild compression deformity involving the anterior inferior aspect of the L1 vertebra. This may be amenable to kyphoplasty. 3: There is interval development of mild compression deformities involving the upper endplate of the T11 and T12 vertebrae. It is difficult to determine if these are acute versus subacute or chronic. MRI of the thoracic spine may help better evaluate. 4: There are subacute fractures involving the medial aspects of the right T8, T9, and T10 ribs. Dictated on workstation # [id number] Dict: 07/12/23 1147 Trans: 07/12/23 1200 [id number] Interpreted by: ROYCE TIPTON MD Departure Impression Primary Impression: Pelvic fracture Qualified Codes: S32.592A - Other specified fracture of left pubis, initial encounter for closed fracture Additional Impressions: Vertebral compression fracture Rib fractures Qualified Codes: S22.41XA - Multiple fractures of ribs, right side, initial encounter for closed fracture Fall on same level Qualified Codes: W18.30XA - Fall on same level, unspecified, initial encounter Disposition: 01 HOME, SELF-CARE Condition: Improved Departure-Patient Inst. Decision time for Depature: 15:45 Referrals: CANDELARIO TRINIDAD (PCP/Family) Primary Care Physician Patient Instructions: Pelvic fracture, Preventing falls in adults, Rib Fracture (DC), Vertebral compression fracture Add. Discharge Instructions: Use extreme caution when getting up and ambulating. Use your walker as much as possible. If for some reason you cannot use your walker, have another assistive device such as a cane or assistance from another person. Continue to observe these precautions until you follow-up with your primary care provider. If you have persistent back pain related to your compression fractures, discuss this with your primary care provider. There is potential to treat you with kyphoplasty (injection of bone cement), but an MRI would need to be obtained first. There is suggestion of osteoporosis on your CT scans. Please discuss this with your primary care provider. You may use hydrocodone as prescribed for pain. Use with caution as it may cause drowsiness, especially with your other medications. Do not drive, operate machinery, or make important decisions while on hydrocodone. Hydrocodone may also cause constipation, so you may wish to use a stool softener such as Colace while on hydrocodone. Your rib fractures appear to be from your prior fall as they are already starting to heal. No special treatment is needed for these rib fractures. Exercise deep breathing often while your rib fractures are healing to prevent pneumonia. Return to care if you have worsening symptoms despite following these instructions. All discharge instructions reviewed with patient and/or family. Voiced un derstanding. Scripts Hydrocodone/Acetaminophen (Hydrocodone-Acetamin 5-325 mg) 5 Mg-325 Mg Tablet 1 TAB PO Q4H PRN for PAIN-MODERATE TO SEVERE, #30 TAB Prov: LEONCIO BENOIT MD 07/12/23 Copy Copies To 1: CANDELARIO TRINIDAD JOSHUA T MD Jul 12, 2023 11:24
[2023-07-12 11:27] LABS: BASOPHILS # (AUTO) 0.1 10^3/uL (0.0-0.1); BASOPHILS % (AUTO) 1 % (0-10); EOSINOPHILS # (AUTO) 0.1 10^3/uL (0.0-0.3); EOSINOPHILS % (AUTO) 2 % (0-10); HEMATOCRIT 40 % (35-52); HEMOGLOBIN 13.4 g/dL (11.5-16.0); LYMPHOCYTES # (AUTO) 1.3 10^3/uL (1.0-4.0); LYMPHOCYTES % (AUTO) 16 % (12-44); MEAN CORPUSCULAR HEMOGLOBIN 32 pg (25-34); MEAN CORPUSCULAR HGB CONC 33 g/dL (32-36); MEAN CORPUSCULAR VOLUME 96 fL (80-99); MEAN PLATELET VOLUME 10.3 fL (9.0-12.2); MONOCYTES # (AUTO) 0.4 10^3/uL (0.0-1.0); MONOCYTES % (AUTO) 5 % (0-12); NEUTROPHILS # (AUTO) 6.1 10^3/uL (1.8-7.8); NEUTROPHILS % (AUTO) 74 % (42-75); PLATELET COUNT 299 10^3/uL (130-400); WHITE BLOOD COUNT 8.2 10^3/uL (4.3-11.0)
[2023-07-12] MEDS ORDERED: fentaNYL INJECTION 100 MCG/2 ML VIAL IVP ONE ×2 (11:30→13:45)
[2023-07-12 11:35] LABS: POTASSIUM 3.4 MMOL/L (3.6-5.0)
[2023-07-12 11:36] LABS: CALCIUM 9.4 MG/DL (8.5-10.1)
[2023-07-12 11:41] LABS: CREATININE SERUM 0.91 MG/DL (0.60-1.30)
[2023-07-12 11:43] LABS: MAGNESIUM 2.2 MG/DL (1.6-2.4)
--- NOTE | 2023-07-12 12:00 | Diagnostic Imaging Report ---
CLINICAL INDICATION: Patient is status post fall, lower back pain. EXAM: Axial CT scan of the thoracic and lumbar spine performed without IV contrast. Sagittal and coronal reformations were performed. Bone and soft tissue windows were created. Auto Exposure Controls were utilized during the CT exam to meet ALARA standards for radiation dose reduction. COMPARISON: MRI of the lumbar spine without contrast dated 04/29/2023. X-ray of the cervical spine dated 03/18/2018. FINDINGS: When counting from the C2 vertebra, there is a transitional L6 vertebra with small L5-L6 intervertebral disc. This may change lumbar nomenclature on the previous images. There is interval development of a mild compression deformity with appearance of endplate irregularity involving the anterior inferior aspect of the L1 vertebra. There is also interval development of a mild compression deformity involving the upper endplate of the T11 and T12 vertebrae. There is a chronic appearing compression deformity involving the upper endplate of the T3 vertebra. There is cortical irregularity and callus formation involving the medial aspects of the right T8, T9, and T10 ribs near the uncovertebral junction region, which may represent subacute fractures. There is no other concern for thoracic or lumbar spine fracture. There is mild atelectasis involving the posterior aspects of both lungs. IMPRESSION: 1: When counting from the C2 vertebra, there are six lumbar-type vertebrae. 2: There is an acute mild compression deformity involving the anterior inferior aspect of the L1 vertebra. This may be amenable to kyphoplasty. 3: There is interval development of mild compression deformities involving the upper endplate of the T11 and T12 vertebrae. It is difficult to determine if these are acute versus subacute or chronic. MRI of the thoracic spine may help better evaluate. 4: There are subacute fractures involving the medial aspects of the right T8, T9, and T10 ribs. Dictated by: Dictated on workstation # [id number]
--- NOTE | 2023-07-12 12:02 | Diagnostic Imaging Report ---
PROCEDURE: CT pelvis without contrast. TECHNIQUE: Multiple contiguous axial images were obtained through the pelvis without the use of intravenous contrast. Sagittal and coronal reformations were performed. Auto Exposure Controls were utilized during the CT exam to meet ALARA standards for radiation dose reduction. INDICATION: Pelvic trauma. COMPARISON: CT lumbar spine performed concurrently. FINDINGS: There is an acute nondisplaced fracture in the central aspect of the left inferior pubic ramus. The left superior pubic ramus appears intact. No fracture is seen within the pubic body on either side. No fracture within the sacral ala. The symphysis pubis and SI joints are normal in alignment. Degenerative arthritis is present in both hips and moderate in severity. No features of avascular necrosis in the femoral head. Urinary bladder is normally filled without rupture. Hysterectomy. No concerning adnexal mass. No free pelvic fluid. IMPRESSION: 1. Acute nondisplaced fracture of the left inferior pubic ramus. 2. No additional acute fracture within the pelvis or proximal femurs. 3. Moderate osteoarthritis of both hips. Dictated by: Dictated on workstation # [id number]
[2023-07-12] MEDS ORDERED: HYDROcodone/ACETAMINOPHEN 5 MG/325 MG TABLET PO ONE (14:45)
[2023-07-12] MEDS ORDERED: ACHD5005 PO (14:53)
[2023-07-12] MEDS ORDERED: NS IV 1000 ML 1,000 ML ONE (15:07)
[2023-07-12] MEDS ORDERED: NS IV 1000 ML 1,000 ML IV SCH (15:15)
[2023-07-12 15:45] VITALS: BP_SYST 119; BP_SYST 152; BP_SYST 177; BP_DIAS 71; BP_DIAS 72; BP_DIAS 82
[2023-07-12 15:55] VITALS: BP 169/82
== END 2023-07-12 16:00 | disposition home or self-care (01) ==
LOC: EDUNIT# 10:15 → ER 10:17
DX: S32.9XXA Fracture of unspecified parts of lumbosacral spine and pelvis, initial encounter for closed fracture (principal); S22.31XA Fracture of one rib, right side, initial encounter for closed fracture; W10.8XXA Fall (on) (from) other stairs and steps, initial encounter; Y93.01 Activity, walking, marching and hiking
CPT/HCPCS: 36415; 72128; 72131; 72192; 80048; 83735; 85025; 93005